=== PATIENT | male | born 1940 | race Caucasian/White ===

== ENCOUNTER 2018-02-03 19:18 | Emergency (ER) | payer MEDICARE ==
[2018-02-03 19:38] VITALS: BMI 25.6
--- NOTE | 2018-02-03 19:59 | ED PDOC ---
Arrival/HPI - History of Present Illness Time/Duration: 24 hours Symptom Onset: Gradual Symptom Course: Worsening <Agnes Toney - Last Filed: 02/03/18 20:19> <Rafael Goetz - Last Filed: 02/03/18 20:49> - General Chief Complaint: Male Genitourinary - History of Present Illness Narrative History of Present Illness (Text): 02/03/18 20:19 77 yo M with PMH of enlarged prostate presents to the ER complaining of difficulty urinating since this morning. Patient had a procedure with Dr. Lovett a few days ago and had an indwelling bearden removed this morning. He has not been able to urinate since removing the bearden catheter, and now has suprapubic discomfort and urinary bleeding. He denies fever, chills, chest pain , shortness of breath, back pain. Dr. Lovett called the ER and spoke to me, sent patient to ER, requests that patient has bearden placed, and then discharged with leg bag, to follow up with him in 2 days. (Agnes Toney) Past Medical History - Provider Review Nursing Documentation Reviewed: Yes - Travel History Have you recently traveled outside [place] w/in the past 3 mons?: No - Past History Past History: Non-Contributing - Infectious Disease Hx of Infectious Diseases: None - Tetanus Immunization Tetanus Immunization: Unknown - Genitourinary/Gynecological Hx Prostate Problems: Yes Hx Uterine Cancer: Yes - Psychiatric Hx Substance Use: No <Agnes Toney - Last Filed: 02/03/18 20:19> Family/Social History - Physician Review Nursing Documentation Reviewed: Yes Family/Social History: No Known Family HX Smoking Status: n Hx Alcohol Use: (m) Hx Substance Use: No <Agnes Toney - Last Filed: 02/03/18 20:19> Allergies/Home Meds <Agnes Toney - Last Filed: 02/03/18 20:19> <Rafael Goetz - Last Filed: 02/03/18 20:49> Allergies/Adverse Reactions: Allergies No Known Allergies Allergy (Verified 02/03/18 19:38) Review of Systems - Review of Systems Constitutional: Normal Eyes: Normal ENT: Normal Respiratory: Normal Cardiovascular: Normal Gastrointestinal: Abdominal Pain Genitourinary Male: Urinary Output Changes Musculoskeletal: Normal Skin: Normal Neurological: Normal Endocrine: Normal Hemo/Lymphatic: Normal Psychiatric: Normal <Agnes Toney - Last Filed: 02/03/18 20:19> Physical Exam Vital Signs Reviewed: Yes Temperature: Afebrile Pulse: Regular Respiratory Rate: Normal Appearance: Positive for: Well-Appearing, Non-Toxic, Uncomfortable Pain Distress: Moderate Mental Status: Positive for: Alert and Oriented X 3 - Systems Exam Head: Present: Atraumatic, Normocephalic Pupils: Present: PERRL Extroacular Muscles: Present: EOMI Conjunctiva: Present: Normal Mouth: Present: Moist Mucous Membranes Neck: Present: Normal Range of Motion Respiratory/Chest: Present: Clear to Auscultation, Good Air Exchange Cardiovascular: Present: Regular Rate and Rhythm, Normal S1, S2 Abdomen: Present: Tenderness (suprapubic), Normal Bowel Sounds. No: Distention Back: No: CVA Tenderness Upper Extremity: Present: Normal Inspection. No: Cyanosis, Edema Lower Extremity: Present: Normal Inspection. No: Edema, CALF TENDERNESS Neurological: Present: GCS=15, CN II-XII Intact Skin: Present: Warm, Dry, Normal Color Psychiatric: Present: Alert, Oriented x 3 <Agnes Toney - Last Filed: 02/03/18 20:19> Vital Signs Temp Pulse Resp Pulse Ox 02/03/18 19:55 98.2 F 78 18 99 Medical Decision Making <Agnes Toney - Last Filed: 02/03/18 20:19> <Rafael Goetz - Last Filed: 02/03/18 20:49> ED Course and Treatment: 02/03/18 20:27 Impression: Urinary retention Differential Diagnosis included but are not limited to: Bladder clot, bladder mass, BPH Plan: -- Bearden catheter insertion -- Reassess and disposition Progress Notes: -- 16fr Bearden catheter placed at bedside; patient reports relief in symptoms -- Discussed with Dr. Lovett, as in HPI -- Discharge to home with indwelling bearden with leg bag (Agnes Toney) 02/03/18 20:33 77 year old male presents to the Emergency department for difficulty urinating. In agreement with resident note, which includes further HPI details. Patient was seen and evaluated with resident, came up with plan and treatment together. 02/03/18 20:48 Seen and examined with resident. 77 y/o M p/w urinary retention after having bearden removed today in Urology office. Bearden placed in ED, draining, patient feels relief. No suprapubic distention. Dr. Lovett will see patient in office. Instructed to return to ED for recurrent retention. (Rafael Goetz) <DawnaAgnes - Last Filed: 02/03/18 20:19> - PA / [employer] / Resident Statement MD/DO has reviewed & agrees with the documentation as recorded. MD/DO has examined the patient and agrees with the treatment plan. - Scribe Statement The provider has reviewed the documentation as recorded by the Scribe <Rafael Goetz - Last Filed: 02/03/18 20:49> - Scribe Statement Yobani Townsend. All medical record entries made by the Scribe were at my direction and personally dictated by me. I have reviewed the chart and agree that the record accurately reflects my personal performance of the history, physical exam, medical decision making, and the department course for this patient. I have also personally directed, reviewed, and agree with the discharge instructions and disposition. (Rafael Goetz) Disposition/Present on Arrival - Present on Arrival Any Indicators Present on Arrival: No History of DVT/PE: No History of Uncontrolled Diabetes: No Urinary Catheter: No History of Decub. Ulcer: No History Surgical Site Infection Following: None - Disposition Have Diagnosis and Disposition been Completed?: Yes Disposition Time: 20:30 Patient Plan: Discharge <Amanuel Toneyterri - Last Filed: 02/03/18 20:19> <SofyRafael Amee - Last Filed: 02/03/18 20:49> - Disposition Diagnosis: Urinary retention Disposition: HOME/ ROUTINE Patient Problems: Current Active Problems Problem Status Onset Urinary retention Acute Condition: FAIR Discharge Instructions (ExitCare): Urinary Retention (DC) Additional Instructions: -- Drain the leg bag as needed -- Follow up with Dr. Lovett in 2-3 days -- Return to the ER for any new or worsening concerns Referrals: Mic Torres MD [Primary Care Provider] - Follow up with primary Forms: [employer] ([place]
[2018-02-03 20:12] VITALS: PULSE 78; RESP 18; TEMP 98.2; O2SAT 99
[2018-02-03 21:36] VITALS: BP 112/76
[2018-02-03 21:42] LABS: URINE BILIRUBIN LARGE (NEGATIVE); URINE BLOOD LARGE (NEGATIVE); URINE GLUCOSE (UA) 250 mg/dL (NEGATIVE); URINE LEUKOCYTE ESTERASE LARGE Leu/uL (NEGATIVE); URINE PROTEIN >=300 mg/dL (<30 mg/dL)
[2018-02-03 21:43] LABS: URINE APPEARANCE BLOODY (CLEAR); URINE COLOR RED (YELLOW)
[2018-02-03 22:15] LABS: URINE EPITHELIAL CELLS 0 - 2 /hpf (0-5); URINE RBC TNTC /hpf (0-2); URINE WBC 0 - 2 /hpf (0-6)
--- NOTE | 2018-02-04 04:28 | PCM.PROC ---
Procedures Attestation:: I certify that I have explained the specified Operation(s) or Procedure(s), risks, benefits and reasonable alternatives to the Patient and/or other person responsible. The opportunity was given to ask questions and all questions answered - Catheter Insertion (Urinary) Prophylactic Antibiotic Given: No Bladder Scan/Ultrasound Used: No Preparation: Povidone-Iodine Type of Catheter Inserted: Briceño Catheter Sami Size: 16 Catheter Balloon Size (mLs): 10 Topical Anesthesia Used: No Results: successfully catheterize-immediate flow Patient Tolerated Procedure: well, no complications Complications: none
== END 2018-02-03 21:47 | disposition home or self-care (01) ==
LOC: ED 19:18
DX: R33.9 Retention of urine, unspecified (principal)